=== PATIENT | male | born 1945 | race Caucasian/White ===

== ENCOUNTER 2016-04-06 14:37 | Emergency (ER) | payer MEDICARE, BC ==
[~2016-04-06] VITALS: Ht 185.4 cm; Wt 101.5 kg
[2016-04-06 14:46] VITALS: BP 145/80; PULSE 110; RESP 16; TEMP 98.3; O2SAT 97
[2016-04-06] MEDS ORDERED: LIPI10TA PO (16:16)
[2016-04-06] MEDS ORDERED: LISI10TA3 PO (16:16)
[2016-04-06] MEDS ORDERED: METO25TA3 PO (16:16)
[2016-04-06] MEDS ORDERED: ASPI1TAB69 PO (16:16)
[2016-04-06] MEDS ORDERED: CYCL1TAB29 PO (16:59)
[2016-04-06] MEDS ORDERED: IBUP800T23 PO (16:59)
[2016-04-06] MEDS ORDERED: PRED50 PO (16:59)
--- NOTE | 2016-04-06 16:59 | PD ---
HPI Chief Complaint: Musculoskeletal Complaint Time Seen by Provider: 16:54 Travel History International Travel<30 days: No Contact w/Intl Traveler<30days: No Traveled to known affect area: No History of Present Illness HPI Patient is a 70-year-old male who presents emergency department for evaluation of neck pain. Patient states the pain started 3 weeks ago, it's painful to rotate his neck more so to the right than the left. He denies any injury or trauma. He states he has been taking ibuprofen 3 times a day for the last few days with no significant relief of his symptoms. He denies any fevers or chills , headache, weakness or paresthesia in his upper extremities. Patient states the pain is a 6/10. PFSH Past Medical History Hx Anticoagulant Therapy: Yes (ASA 325) Cardiovascular Problems: Yes (STENTS X 3,) High Cholesterol: Yes Diminished Hearing: No Hypertension: Yes Influenza Vaccination: Yes ?: Not Social History Alcohol Use: Yes Tobacco Use: No Allergies-Medications (Allergen,Severity, Reaction): Coded Allergies: No Known Allergies (Unverified , 04/06/16) Reported Meds & Prescriptions Reported Meds & Active Scripts Active Ibuprofen 800 Mg Tab 800 Mg PO Q8H PRN 10 Days Prednisone 50 Mg Tab 50 Mg PO DAILY Flexeril (Cyclobenzaprine HCl) 10 Mg Tab 10 Mg PO TID PRN 10 Days Reported Lipitor (Atorvastatin Calcium) 10 Mg Tab 0 PO HS Lisinopril 10 Mg Tab 0 PO DAILY Metoprolol Tartrate 25 Mg Tab 0 PO DAILY Aspirin 81 Mg Tabdr 81 Mg PO DAILY Review of Systems Except as stated in HPI: all other systems reviewed are Neg HENT: Positive: Neck Stiffness, Neck Pain Physical Exam Narrative GENERAL: Well-nourished, well-developed patient. SKIN: Warm and dry. HEAD: Normocephalic. EYES: No scleral icterus. No injection or drainage. NECK: Supple, trachea midline. No JVD or lymphadenopathy. Limited range of motion with rotation to the right more so than the left. No spinal tenderness or step-off noted. Tenderness to palpation in paraspinal musculature cervical region bilaterally. CARDIOVASCULAR: Regular rate and rhythm without murmurs, gallops, or rubs. RESPIRATORY: Breath sounds equal bilaterally. No accessory muscle use. GASTROINTESTINAL: Abdomen soft, non-tender, nondistended. MUSCULOSKELETAL: No cyanosis, or edema. 5/5 muscle strength in bilateral upper extremities, patient is neurovascularly intact. BACK: Nontender without obvious deformity. No CVA tenderness. Data Data Last Documented VS Vital Signs Date Time Temp Pulse Resp B/P Pulse Ox O2 Delivery O2 Flow Rate FiO2 04/06/16 17:25 80 18 98 04/06/16 14:46 98.3 145/80 [facility] Medical Decision Making Medical Screen Exam Complete: Yes Emergency Medical Condition: Yes Interpretation(s) Vital Signs Date Time Temp Pulse Resp B/P Pulse Ox O2 Delivery O2 Flow Rate FiO2 04/06/16 14:46 98.3 110 16 145/80 97 Differential Diagnosis Strain versus sprain versus spasm versus discogenic pain Narrative Course Patient is a 70-year-old male who presented to emergency department for evaluation of neck pain. Neck pain started 3 weeks ago and has gotten progressively worse. Patient reports playing golf regularly but has been unable to due to the pain for the last 2 days. Patient is neurologically intact. No meningeal signs present. Patient will be given a prescription for a muscle relaxer and a short course of oral steroids. He is encouraged to continue taking ibuprofen as well. He is encouraged to return to emergency department for any new or worsening symptoms or if pain does not begin to improve within 2-3 days. Patient verbalized understanding of these instructions. Patient is stable for discharge. Patient is heart rate was elevated at 110 on arrival, reassessed at 80 patient is stable for discharge. Diagnosis Primary Impression: Muscle spasms of neck Referrals: Primary Care Physician Patient Instructions: Cervical Strain (GEN), General Instructions, Muscle Spasm (ED) Additional Instructions: Take medications as directed Apply warm moist heat to affected area, continue range of motion exercises, avoid exacerbating activities You may use [id number] Biofreeze or similar agent as directed Return to emergency department for any new or worsening symptoms Med/Other Pt SpecificInfo: Prescription(s) given Scripts Ibuprofen 800 Mg [id number] Mg PO Q8H PRN (Pain/Inflammation) 10 Days Ref 0 Prov:Geraldine Hathaway 04/06/16 Prednisone 50 Mg Tab50 Mg PO DAILY #5 TAB Ref 0 Prov:Geraldine Hathaway 04/06/16 Cyclobenzaprine (Flexeril)10 Mg Tab10 Mg PO TID PRN (MUSCLE SPASM) 10 Days Ref 0 Prov:Geraldine Hathaway 04/06/16 Disposition: 01 DISCHARGE HOME Condition: Stable Geraldine Hathaway Apr 06, 2016 16:59
[2016-04-06 17:25] VITALS: PULSE 80; RESP 18; O2SAT 98
== END 2016-04-06 17:47 | disposition home or self-care (01) ==
LOC: PHED 14:37 → PHEFT 17:47
DX: M62.838 Other muscle spasm (principal); M54.2 Cervicalgia; E78.00 Pure hypercholesterolemia, unspecified; I10 Essential (primary) hypertension
CPT/HCPCS: 99283